=== PATIENT | female | born 1960 ===

== ENCOUNTER → 2017-09-11 19:11 | Outpatient (CLI) | payer BC | END | disposition home or self-care (01) | LOC: D.LABREF 19:11 | DX: N39.0 Urinary tract infection, site not specified (principal); R31.9 Hematuria, unspecified ==

== ENCOUNTER → 2017-09-18 09:26 | Outpatient (CLI) | payer BC | END | disposition home or self-care (01) | LOC: D.US 09:26 | DX: R31.9 Hematuria, unspecified (principal) ==

== ENCOUNTER → 2018-04-13 11:37 | Outpatient (CLI) | payer BC ==
[~2018-04-13 11:37] MED LIST: LIPITOR80 MG PO; NAPROSYN500 MG PO; NITROSTAT0.4 MG SL; NORCO 7.5/325 T1 TA1 PO; PAXIL CR37.5 MG PO; RESTORIL7.5 MG PO; TIROSINT13 MCG PO; TRIGLIDE160 MG PO; VITAMIN D31000 UNIT PO; XANAX0.5 MG PO; ZOFRAN ODT4 MG/UDTAB PO
== END | disposition home or self-care (01) ==
LOC: D.RAD 11:37
DX: M53.3 Sacrococcygeal disorders, not elsewhere classified (principal)

== ENCOUNTER → 2018-04-25 10:27 | Outpatient (CLI) | payer BC | END | disposition home or self-care (01) | LOC: D.MRI 10:27 | DX: M54.16 Radiculopathy, lumbar region (principal) ==

== ENCOUNTER 2018-05-04 12:01 | Emergency (ER) | payer BC ==
[~2018-05-04] VITALS: Ht 167.6 cm; Wt 63.6 kg
[2018-05-04 12:14] VITALS: Ht 167.6 cm; Wt 63.6 kg
[2018-05-04] MEDS ORDERED: ZOFRAN ODT4 MG/UDTAB PO (12:18)
[2018-05-04] MEDS ORDERED: TIROSINT13 MCG PO (12:19)
[2018-05-04] MEDS ORDERED: LIPITOR80 MG PO (12:19)
[2018-05-04] MEDS ORDERED: TRIGLIDE160 MG PO (12:19)
[2018-05-04] MEDS ORDERED: PAXIL CR37.5 MG PO (12:19)
[2018-05-04] MEDS ORDERED: NAPROSYN500 MG PO (12:20)
[2018-05-04] MEDS ORDERED: XANAX0.5 MG PO (12:20)
[2018-05-04] MEDS ORDERED: NITROSTAT0.4 MG SL (12:21)
[2018-05-04] MEDS ORDERED: RESTORIL7.5 MG PO (12:21)
[2018-05-04] MEDS ORDERED: VITAMIN D31000 UNIT PO (12:22)
[2018-05-04] MEDS ORDERED: NORCO 7.5/325 T1 TA1 PO (13:25)
[2018-05-04 13:35] VITALS: BP 156/87
== END 2018-05-04 13:36 | disposition home or self-care (01) ==
LOC: D.ER 12:01
DX: M51.26 Other intervertebral disc displacement, lumbar region (principal); F17.200 Nicotine dependence, unspecified, uncomplicated